=== PATIENT | male | born 1980 | race Two or more races ===

== ENCOUNTER 2021-01-26 20:48 | Emergency (ER) | payer MEDICAID, OTHER ==
[~2021-01-26] VITALS: Ht 165.1 cm; Wt 77.1 kg
[2021-01-26] MEDS ORDERED: IBUPROFEN 800 MG TAB PO ONE (23:15)
[2021-01-26] MEDS ORDERED: ACETAMINOPHEN 500 MG TAB PO ONE (23:15)
[2021-01-26 23:42] VITALS: BP 148/93
== END 2021-01-27 00:17 | disposition home or self-care (01) ==
LOC: ER 20:54
DX: S01.01XA Laceration without foreign body of scalp, initial encounter (principal); S43.401A Unspecified sprain of right shoulder joint, initial encounter; W11.XXXA Fall on and from ladder, initial encounter; Y93.89 Activity, other specified; Y92.89 Other specified places as the place of occurrence of the external cause; Y99.8 Other external cause status
CPT/HCPCS: 12002; 70450; 73030

== ENCOUNTER 2021-02-14 14:27 | Emergency (ER) | payer MEDICAID ==
[~2021-02-14] VITALS: Ht 165.1 cm; Wt 72.6 kg
[2021-02-14 18:48] VITALS: BP 152/96
== END 2021-02-14 16:35 | disposition home or self-care (01) ==
LOC: ER 14:27
DX: S01.01XD Laceration without foreign body of scalp, subsequent encounter (principal); X58.XXXD Exposure to other specified factors, subsequent encounter

== ENCOUNTER 2023-10-10 10:42 | Emergency (ER) | payer MEDICAID ==
[~2023-10-10] VITALS: Ht 165.1 cm; Wt 72.3 kg
[2023-10-10 12:17] VITALS: BP 152/100; PULSE 105; RESP 16; TEMP 97.7; O2SAT 98
[2023-10-10] MEDS: cefTRIAXone SOD 1,000 MG VL IM ONE (13:08)
[2023-10-10] MEDS: KETOROLAC TROMETH 30 MG/ML 1ML VIAL IM ONE (13:09)
[2023-10-10] MEDS ORDERED: CLIN1CAP70 PO (13:22)
[2023-10-10] MEDS ORDERED: IBUP1TAB5 PO (13:22)
== END 2023-10-10 13:59 | disposition home or self-care (01) ==
LOC: ER 10:42
DX: K04.7 Periapical abscess without sinus (principal); F12.10 Cannabis abuse, uncomplicated
CPT/HCPCS: 96372; 99284; J0696; J1885